=== PATIENT | female | born 1960 | race Caucasian/White ===

== ENCOUNTER 2022-06-01 09:58 | Outpatient (REF) | payer OTHER, SELFPAY ==
--- NOTE | ~2022-06-01 | XR_ITS ---
EXAMINATION: XR ABDOMEN KUB CLINICAL INDICATION: Hematuria COMPARISON: None TECHNIQUE: AP view of the abdomen. FINDINGS: There is scattered stool and gas seen in the colon without distention. The small bowel loops are normal caliber. There is no organomegaly. No gross bony abnormality. XR/XR KUB IMPRESSION: Unremarkable abdomen exam.
== END 2022-06-01 09:59 | disposition home or self-care (01) ==
LOC: HO.HMGCX 09:58
PROVIDERS: PCP Family Medicine; Visit Provider Nurse Practitioner Family
DX: R31.9 Hematuria, unspecified (principal)
CPT/HCPCS: 74018; 87086

== ENCOUNTER 2022-06-03 13:07 | Outpatient (REF) | payer OTHER, SELFPAY ==
[2022-06-03 16:23] LABS: MANUAL DIFF FLAG NO
[2022-06-03 16:25] LABS: Basophils Absolute Auto 0.1 X10*3/uL (0.0-0.2); Basophils Percent Auto 0.7 % (0-2); Eosinophils Absolute Auto 0.1 X10*3/uL (0.0-0.4); Eosinophils Percent Auto 1.6 % (0-4); Hematocrit 45.6 % (37.0-47.0); Hemoglobin 15.5 g/dl (12.0-16.0); Imm Gran Abs Auto 0.02 X10*3/uL (0.00-0.03); Imm Gran Pct Auto 0.3 % (0.0-0.4); Lymphocytes Absolute Auto 2.3 X10*3/uL (1.2-4.9); Lymphocytes Percent Auto 32.5 % (20-40); Mean Corpuscular Hemoglobin 31.2 pg (27.0-33.0); Mean Corpuscular Volume 91.8 fL (80.0-98.0); Mean Platelet Volume 11.3 fL (9.4-12.3); Monocytes Absolute Auto 0.4 X10*3/uL (0.1-1.2); Monocytes Percent Auto 6.3 % (2-11); Neutrophils Absolute Auto 4.1 x10*3/uL (2.0-8.3); Neutrophils Percent Auto 58.6 % (45-73); Platelet Count 276 X10*3/uL (160-400); Red Blood Count 4.97 X10*6/uL (4.20-5.50); Red Cell Distribution Width 11.9 % (11.0-16.0)
[2022-06-03 16:42] LABS: Alanine Aminotransferase 17 U/L (0-31); Albumin Level 4.4 g/dL (3.5-5.0); Alkaline Phosphatase 93 U/L (39-117); Anion Gap 17 (12-20); Aspartate Amino Transferase 18 U/L (5-31); Bilirubin Total 0.9 mg/dL (0.0-1.0); Blood Urea Nitrogen 16 mg/dL (9-16); Calcium 9.3 mg/dL (8.4-10.2); Carbon Dioxide 26 mmol/L (22-29); Chloride 103 mmol/L (96-108); Cholesterol 274 mg/dL; Estimated Glomerular Filt Rate > 60; Glucose Fasting 91 mg/dL (60-99); HDL Cholesterol 49 mg/dL; LDL Cholesterol Calculated 197 mg/dl; Potassium 4.3 mmol/L (3.3-5.1); Sodium 142 mmol/L (135-145); Total Protein 7.5 g/dL (6.5-8.0); Triglycerides 142 mg/dL
[2022-06-03 17:04] LABS: TSH reflex Free T4 2.76 uIU/mL (0.32-4.0)
== END 2022-06-03 13:08 | disposition home or self-care (01) ==
LOC: HO.HMGCLDS 13:07
PROVIDERS: PCP Family Medicine; Visit Provider Nurse Practitioner Family
DX: R31.9 Hematuria, unspecified (principal)
CPT/HCPCS: 36415; 80053; 80061; 84443; 85025

== ENCOUNTER 2024-03-29 15:09 | Emergency (ER) | payer OTHER, SELFPAY ==
--- NOTE | ~2024-03-29 | US_ITS ---
EXAMINATION: US VENOUS ULTRASOUND WITH DOPPLER LOWER EXTREMITY, LEFT CLINICAL INFORMATION: Left lower extremity swelling can edema COMPARISON: None available. TECHNIQUE: Ultrasound of the deep veins is performed from the hip to the calf with compression sonography and color and pulse Doppler assessment. Spectral analysis with color-flow imaging is performed. FINDINGS: There is normal venous compression and respiratory variation and augmented flow. The visualized common femoral vein, superficial femoral vein, profunda femoral vein, popliteal vein, and the trifurcation region shows no evidence of deep venous thrombosis. There is no significant popliteal fossa cyst. There is superficial thrombophlebitis at the lateral/posterior aspect of left thigh corresponding to the area of pain and redness If the patient's symptoms persist, followup ultrasound in 5 days 7 days might be of value to exclude proximal propagation from a non-visualized calf vein. US/US venous duplex LE IMPRESSION: No DVT demonstrated in the left lower extremity. Superficial thrombophlebitis
[2024-03-29 15:27] VITALS: BP 190/85; PULSE 79; RESP 18; TEMP 37.1; O2SAT 97; BMI 41.2
--- NOTE | 2024-03-29 15:29 | ED_ITS ---
HPI - General Adult General Chief complaint: Extremity Problem Stated complaint: ?L leg DVT/ sent by UC Time Seen by Provider: 03/29/24 18:15 Source: patient Mode of arrival: ambulatory Limitations: no limitations History of Present Illness HPI narrative: Patient is a 63-year-old female who presents emergency department for evaluation of concerns left lower extremity. Awoke last week with a pruritic area to the left posterior thigh, progressed over the following days, applied ice and heat with some improvement. Last night she noticed an additional area of firmness on palpation. She presented to an urgent care for evaluation was advised to come to the emergency department to rule out DVT. Related Data Previous Rx's ?Medication ?Instructions ?Recorded aspirin 81 mg capsule 81 mg PO DAILY #30 caps 03/29/24 Allergies Allergy/AdvReac Type Severity Reaction Status Date / Time codeine [CODEINE] Allergy Unknown UNKNOWN Verified 03/29/24 15:33 levofloxacin [From LEVAQUIN] Allergy Unknown UNKNOWN Verified 03/29/24 15:33 metronidazole [From FLAGYL] Allergy Unknown UNKNOWN Verified 03/29/24 15:33 procaine [From NOVOCAIN] Allergy Unknown UNKNOWN Verified 03/29/24 15:33 sulfamethoxazole Allergy Hives Verified 03/29/24 15:33 [From Bactrim] trimethoprim [From Bactrim] Allergy Hives Verified 03/29/24 15:33 Codeine Sulfate Allergy Unknown unknown Uncoded 06/01/22 08:46 Review of Systems Review of Systems: Yes all other systems are reviewed and are negative PMFSH Past Medical History Attestation statement: The following information was validated with the patient. Source: old records reviewed Social History Social History Advance Directives: No Advance Directives Information Provided: No Do you have a plan to hurt others: No Plan Physical Exam ED Vital Signs: Vital Signs - 24 hr 03/29/24 15:27 Temperature 98.7 F Pulse Rate 79 Respiratory Rate 18 Blood Pressure 190/85 H Pulse Oximetry 97 Oxygen Delivery Method Room Air BMI result Body Mass Index 41.2 Appearance: Alert.?Oriented to person, place and time. No acute distress.?Normal affect.? Neck: Normal inspection.? Neck supple.?? CVS: Heart sounds normal. Normal heart rate and rhythm.? Pulses normal.?? Respiratory: No respiratory distress.? Lung sounds clear to auscultation bilaterally?? Abdomen: Soft and non-tender. Normoactive bowel sounds.? Skin: Skin warm and dry.? Normal skin color.? Left posterior lateral distal thigh with 17 cm X 10cm area of erythema warmth and to palpable firm nodular areas Extremities: No lower extremity edema.? No calf ttp? Neuro: Moves all extremities spontaneously. Sensation intact bilaterally. Ambulates with normal steady gait. Medical Decision Making Medical Decision Making MDM Narrative: Patient is a 63-year-old female who presents emergency department for evaluation of redness swelling and a palpable lump to the posterior thigh as per HPI. Initial physical most concerning for superficial phlebitis versus DVT. She has in no respiratory distress, she is without tachycardia tachypnea or hypoxia. She is afebrile. Venous duplex Ultrasound was obtained which reveals a superficial thrombophlebitis of the left posterior lateral distal thigh. We had an extensive conversation about treatment options including 45 day course of Eliquis, she expresses reservations about beginning Eliquis as she has been experiencing abnormal uterine bleeding. Reports she has been having bleeding ranging from mild spotting to bleeding with passing of clots, at times having to change a sanitary napkin 2-3 times daily. She has been followed by her carpenter ship through [facility], she does admit that she has not followed up recently but she was supposed to undergo a biopsy. She has concerned that the Eliquis may worsen this bleeding. Discussed alternatively low-dose aspirin and close observation of this area with repeat ultrasound within 1 week. She has elected for aspirin and outpatient follow-up with her primary care provider for repeat ultrasound. We discussed strict return precautions, and she verbalizes understanding of this. This case was discussed with ED attending Dr. Sevilla who was in agreement. The extremities neurovascularly intact distally. At this time stable for discharge Differential Diagnosis Differential Diagnoses: The differential diagnosis associated with the presentation includes (See narrative above) Independent Interpretation I performed an independent interpretation of an: Ultrasound (Superficial phlebitis) Radiology Impression Discussion of test interpretation with radiology: I have reviewed the radiologist's reading. Radiologist Impression: US/US venous duplex LE LT IMPRESSION: No DVT demonstrated in the left lower extremity. Superficial thrombophlebitis External Record Review External record reviewed: Outpatient record Prescription Management I considered prescription management with: Other (See narrative above) Discharge Plan Discharge Clinical Impression: Superficial thrombophlebitis Qualifiers: Superficial thrombophlebitis-Involved body area: lower extremity Laterality: left Qualified Code(s): I80.02 - Phlebitis and thrombophlebitis of superficial vessels of left lower extremity Patient Disposition: Home, Self-Care Instructions: Superficial Thrombophlebitis (ED) Additional Instructions: As discussed, it is very important that you monitor the area closely, if you begin to notice continued extension of redness, swelling, progressive pain should be re-evaluated right away. If you develop chest pain, shortness of breath difficulty breathing, numbness or tingling to the extremities and it should be re-evaluated right away. We talked about treatment options including Eliquis versus low-dose aspirin, due to your concern for uterine bleeding you have elected for low-dose aspirin. It is imperative that you follow-up with gynecology regarding her abnormal vagi nal bleeding. Additionally, it is imperative that you contact your primary care doctor office 1st thing Sunday to arrange for a follow-up ultrasound within 1 week. Prescriptions: New aspirin 81 mg capsule 81 mg PO DAILY Qty: 30 0RF Referrals: Jared Lu MD [Primary Care Provider] - Print Language: Montserratian
[2024-03-29 18:45] VITALS: BP 196/97; PULSE 69; RESP 18; TEMP 36.8; O2SAT 97
== END 2024-03-29 18:46 | disposition home or self-care (01) ==
PROVIDERS: Emergency Provider Internal Medicine; PCP Family Medicine
DX: I80.02 Phlebitis and thrombophlebitis of superficial vessels of left lower extremity (principal); R60.0 Localized edema
CPT/HCPCS: 93971; 99282; 99284

== ENCOUNTER 2024-04-02 09:15 | Outpatient (AMB) | payer OTHER, SELFPAY ==
--- NOTE | 2024-04-02 09:20 | A.OFFPC_ITS ---
Vital Signs 04/02/24 09:26 Height 5 ft 1 in Weight 216 lb 4 oz BMI 40.9 BP 155/69 H Blood Pressure Location Rt brachial Position Sitting Respiration 16 Pulse 84 Pulse Source Pulse Oximeter Temp 97.5 F Temp Source Temporal Artery Scan Pulse Oximetry (%) 96 Oxygen Delivery Method Room Air Intake Visit Reasons: Establish care Intake Note: patient here for new patient visit. Clinical Specialist Medical Device Required: No Is last menstrual period known: No (but shes having some bleeding ) Post menopausal: No Patient : No Allergies codeine [CODEINE] Allergy (Unknown, Verified 04/02/24 10:00) UNKNOWN levofloxacin [From LEVAQUIN] Allergy (Unknown, Verified 04/02/24 10:00) UNKNOWN metronidazole [From FLAGYL] Allergy (Unknown, Verified 04/02/24 10:00) UNKNOWN procaine [From NOVOCAIN] Allergy (Unknown, Verified 04/02/24 10:00) UNKNOWN sulfamethoxazole [From Bactrim] Allergy (Verified 04/02/24 10:00) Hives trimethoprim [From Bactrim] Allergy (Verified 04/02/24 10:00) Hives Codeine Sulfate Allergy (Unknown, Uncoded 06/01/22 08:46) unknown Medication List - Last Reconciled 04/02/24 by FATOU Bergeron- aspirin 81 mg PO DAILY Tobacco use date assessed: 04/02/24 Dental Screening Dental Screen Date: 04/02/24 Did you have a dental visit in the last 12 months?: Yes Did you have a dental problem in the last 6 months where you did not have access to dental care?: No Was dental information given to patient?: Patient has dentist HPI HPI Comments History of Present Illness Details Here today for hospital discharge follow up. ED visit report from 03/29/24 at [facility] reviewed and states: Patient is a 63-year-old female who presents emergency department for evaluation of redness swelling and a palpable lump to the posterior thigh as per HPI. Initial physical most concerning for superficial phlebitis versus DVT. She has in no respiratory distress, she is without tachycardia tachypnea or hypoxia. She is afebrile. Venous duplex Ultrasound was obtained which reveals a superficial thrombophlebitis of the left posterior lateral distal thigh. We had an extensive conversation about treatment options including 45 day course of Eliquis, she expresses reservations about beginning Eliquis as she has been experiencing abnormal uterine bleeding. Reports she has been having bleeding ranging from mild spotting to bleeding with passing of clots, at times having to change a sanitary napkin 2-3 times daily. She has been followed by her lye boiler through [facility], she does admit that she has not followed up recently but she was supposed to undergo a biopsy. She has concerned that the Eliquis may worsen this bleeding. Discussed alternatively low-dose aspirin and close observation of this area with repeat ultrasound within 1 week. She has elected for aspirin and outpatient follow-up with her primary care provider for repeat ultrasound. 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 She feels well. Reports the area has improved. Has been applying warm moist compresses several times per day and taking her aspirin daily. She does admit to acid reflux with the aspirin. Endorses several sensitivities to most medications. Discussed using enteric- coated but she reports that this makes her feel worse. She is taking the aspirin with food. When asked about any neuro or cardiac symptoms she does state that she was walking the other day in the heat uphill and had a short- lived pulling sensation substernally that lasted only 1-2 seconds and was self- limiting. Not associated with any other symptoms. Otherwise she denies any chest pain, shortness of breath, headache, visual disturbances, syncope or presyncope, swelling in the left lower extremity, loss of sensation in the left lower extremity. Discuss the need for follow up which includes an ultrasound in about 1 week. She is willing and open to do this. The order was placed today. Discussed a consult with vascular as she has peripheral vascular disease affecting bilateral lower extremities with several varicosities. She really does not want to see vascular. Discuss with her the clinical reasoning behind this referral. She is open to the referral being placed today but admits that she will cancel it if she does not feel like she needs it or does not want to go. Exam Awake alert oriented, no acute distress Neurovascularly intact Regular rate and rhythm, 2/6 systolic murmur [patient reports this is longstanding in his had an echocardiogram previously] Left lower extremity with several varicosities and spider veins, lymphedema, unable to palpate pedal pulses given body habitus, posterior left thigh is resolving ecchymosis with palpable superficial clot extending from the back of the thigh to the bend in the knee. Plan Aspirin 81 mg p.o. daily for 90 days Refer to vascular Repeat ultrasound 04/07/2024 Educated on reasons to seek additional care FU with [employer] [facility] Return to office 04/10/2026 to follow up, sooner as needed. This note is constructed using voice recognition software. While every effort has been made to ensure accuracy in supervisor road administrator, still errors may have been included Sometimes, these errors may affect the content or meaning of the given sentence . Total time spent caring for the patient today was 45 minutes. This includes time spent before the visit reviewing the chart, time spent during the visit, and time spent after the visit on documentation [facility] Social History Housing: Apartment Patient Tobacco Use Status: Former Tobacco user (stopped smoking years ago) e-Cigarette/Vaping Use: Never Used Second Hand Smoke Exposure: No service: No Current occupational status: employed Current occupation: nurse Current occupational exposures/hazards: Yes Cognitive needs: No Hearing needs: No Vision needs: Yes Questionnaire PHQ-9 Over the last 2 weeks, how often have you been bothered by any of the following problems? 1. Little interest or pleasure in doing things: not at all 2. Feeling down, depressed, or hopeless: not at all 3. Trouble falling or staying asleep, or sleeping too much: not at all 4. Feeling tired or having little energy: not at all 5. Poor appetite or overeating: not at all 6. Feeling bad about yourself - or that you are a failure or have let yourself or your family down: not at all 7. Trouble concentrating on things, such as reading the newspaper or watching television: not at all 8. Moving or speaking so slowly that other people could have noticed. Or the opposite - being so fidgety or restless that you have been moving around a lot more than usual: not at all 9. Thoughts that you would be better off or of hurting yourself in some way: not at all Total score: 0 Depression Screening Interpretation: Negative Depression Screening Done: Yes 68395 - PHQ-9 Billing: Yes Source: Developed by Drs. Delvis Singh, Debra Rivas, Jey Pan and colleagues, with an educational rachele from [employer] Thrive Questionnaire Date Thrive assessed: 04/02/24 I am a: Patient What is your living situation today?: I have a steady place to live Within the past 12 months, did the food you bought not last and you didn't have the money to get more?: Never true Within the past 12 months, did you worry whether your food would run out before you got money to buy more?: Never true Do you have trouble paying for medicines?: No Do you have trouble getting transportation to medical appointments?: No Do you have trouble paying your heating and electricity bill?: No Do you have trouble taking care of your child, family member or friend?: No Do you have trouble with day-to-day activities such as bathing, preparing meals, shopping, managing finances, etc.?: No Are you currently unemployed and looking for a job?: No Are you interested in more education?: No Please select the resources that you would like help with: None Currently or been in a relationship where the following occur: No concerns reported THRIVE Score: 0 AUDIT C Alcohol Use Questionnaire (AUDIT-C) 1. How often do you have a drink containing alcohol?: Never Total Score: 0 Score Reviewed/Action Taken: Yes ASH-7 AMB Questionnaire ASH-7 Date ASH - 7 assessed: 04/02/24 Feeling nervous, anxious, or on edge: 0 = Not at all Not being able to stop or control worryin = Not at all Worrying too much about different things: 0 = Not at all Trouble relaxin = Not at all Being so restless that it is hard to sit still: 0 = Not at all Becoming easily annoyed or irritable: 0 = Not at all Feeling afraid as if something awful might happen: 0 = Not at all Total ASH-7 score (0-4 normal; 5-9 mild; 10-14 moderate; 15-21 severe): 0 Source: Developed by Drs. Delvis Singh, Debra Rivas, Jey Pan and colleagues, with an educational rachele from [employer] ASH-7 Assessment Billing ASH-7 Assessment Tool: ASH-7 Assessment 89074 Physical exam (Primary Care) Vital Signs: Last Vital Signs Temp 97.5 F 04/02/24 09:26 Pulse 84 04/02/24 09:26 Resp 16 04/02/24 09:26 BP 155/69 H 04/02/24 09:26 Pulse Ox 96 04/02/24 09:26 Oxygen Delivery Method Room Air 04/02/24 09:26 BMI result Body Mass Index 40.9 BMI Assessment/Plan discussion: High BMI High, discussed plan: lifestyle Tobacco/Smoking Status: Tobacco use Status Tobacco use date assessed 04/02/24 04/02/24 09:26 Patient Tobacco Use Status Former Tobacco user (stopped 04/02/24 09:26 smoking years ago) e-Cigarette/Vaping Use Never Used 04/02/24 09:26 PHQ-9: PHQ-9 Score PHQ-9: Total score 0 04/02/24 09:34 Depression Screening Interpretation: Negative Thrive Assessment: Date of Thrive Assessment Date Thrive assessed 04/02/24 04/02/24 09:34 Currently or been in a relationship where the following occur: No concerns reported Assessment and Plan Assessment & Plan (1) Superficial thrombophlebitis: Code(s): I80.9 - Phlebitis and thrombophlebitis of unspecified site Qualifiers: Laterality: left Superficial thrombophlebitis-Involved body area: lower extremity Qualified Code(s): I80.02 - Phlebitis and thrombophlebitis of superficial vessels of left lower extremity (2) PVD (peripheral vascular disease): Code(s): I73.9 - Peripheral vascular disease, unspecified (3) Heart murmur: Code(s): R01.1 - Cardiac murmur, unspecified (4) BMI 40.0-44.9, adult: Code(s): Z68.41 - Body mass index [BMI] 40.0-44.9, adult (5) Hospital discharge follow-up: Code(s): Z09 - Encounter for follow-up examination after completed treatment for conditions other than malignant neoplasm Orders: Orders US venous duplex LE LT Today I80.02 - Phlebitis and thrombophlebitis of superficial vessels of left lower extremity Referrals Vascular Surgery Referral I80.02 - Phlebitis and thrombophlebitis of superficial vessels of left lower extremity Coding Level of Care Code New Pt Level 4 (57261) Diagnoses Superficial thrombophlebitis I80.02 Laterality: left Superficial thrombophlebitis-Involved body area: lower extremity PVD (peripheral vascular disease) I73.9 Heart murmur R01.1 BMI 40.0-44.9, adult Z68.41 Hospital discharge follow-up Z09 Additional Codes ASH-7 Assessment Billing - ASH-7 Assessment Tool: ASH-7 Assessment [id number] ( [id number])
[2024-04-02 09:26] VITALS: BP 155/69; PULSE 84; RESP 16; TEMP 36.4; O2SAT 96; BMI 40.9
== END 2024-04-02 09:54 | disposition home or self-care (01) ==
PROVIDERS: PCP Family Medicine; Visit Provider Nurse Practitioner Family
DX: I80.02 Phlebitis and thrombophlebitis of superficial vessels of left lower extremity (principal); I73.9 Peripheral vascular disease, unspecified; Z68.41 Body mass index [BMI] 40.0-44.9, adult; E66.01 Morbid (severe) obesity due to excess calories; R01.1 Cardiac murmur, unspecified; Z09 Encounter for follow-up examination after completed treatment for conditions other than malignant neoplasm
CPT/HCPCS: 99214

== ENCOUNTER 2024-04-07 12:51 | Outpatient (REF) | payer OTHER, SELFPAY ==
--- NOTE | ~2024-04-07 | US_ITS ---
EXAMINATION: US VENOUS ULTRASOUND WITH DOPPLER LOWER EXTREMITY, LEFT CLINICAL INFORMATION: Phlebitis one week follow-up COMPARISON: Left lower extremity ultrasound 03/29/2024 TECHNIQUE: Ultrasound of the deep veins is performed from the hip to the calf with compression sonography and color and pulse Doppler assessment. Spectral analysis with color-flow imaging is performed. FINDINGS: There is normal venous compression and respiratory variation and augmented flow. The visualized common femoral vein, superficial femoral vein, profunda femoral vein, popliteal vein, and the trifurcation region shows no evidence of deep venous thrombosis. There is no significant popliteal fossa cyst. Again seen is superficial thrombophlebitis in the posterior thigh similar in appearance to 03/29/2024. US/US venous duplex LE LT IMPRESSION: No DVT demonstrated in the left lower extremity. No change in the appearance of the superficial thrombophlebitis.
== END 2024-04-07 12:52 | disposition home or self-care (01) ==
LOC: HO.HMGCX 12:51
PROVIDERS: PCP Nurse Practitioner Family; Visit Provider Nurse Practitioner Family
DX: I80.02 Phlebitis and thrombophlebitis of superficial vessels of left lower extremity (principal)
CPT/HCPCS: 93971

== ENCOUNTER 2024-04-11 11:50 | Outpatient (AMB) | payer OTHER, SELFPAY ==
--- NOTE | 2024-04-11 11:57 | A.OFFPC_ITS ---
Vital Signs 04/11/24 12:02 Height 5 ft 1 in Weight 219 lb BMI 41.4 BP 136/66 Blood Pressure Location Lt brachial Position Sitting Respiration 18 Pulse 76 Pulse Source Pulse Oximeter Temp 98.2 F Temp Source Oral Pulse Oximetry (%) 97 Oxygen Delivery Method Room Air Intake Visit Reasons: 30 min fu repeat US LLE for S.T. Intake Note: Follow up, ultrasound done 04/07/24 Is last menstrual period known: No Allergies codeine [CODEINE] Allergy (Unknown, Verified 04/11/24 12:04) UNKNOWN levofloxacin [From LEVAQUIN] Allergy (Unknown, Verified 04/11/24 12:04) UNKNOWN metronidazole [From FLAGYL] Allergy (Unknown, Verified 04/11/24 12:04) UNKNOWN procaine [From NOVOCAIN] Allergy (Unknown, Verified 04/11/24 12:04) UNKNOWN sulfamethoxazole [From Bactrim] Allergy (Verified 04/11/24 12:04) Hives trimethoprim [From Bactrim] Allergy (Verified 04/11/24 12:04) Hives Codeine Sulfate Allergy (Unknown, Uncoded 04/11/24 12:04) unknown Medication List - Last Reconciled 04/11/24 by MITCH BergeronP- aspirin 325 mg PO DAILY Tobacco use date assessed: 04/02/24 Dental Screening Dental Screen Date: 04/11/24 Did you have a dental visit in the last 12 months?: Yes Did you have a dental problem in the last 6 months where you did not have access to dental care?: No Was dental information given to patient?: Patient has dentist HPI HPI Comments History of Present Illness 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 Reports the area has improved. Has been applying warm moist compresses several times per day and taking her aspirin daily. She does admit to acid reflux with the aspirin. Endorses several sensitivities to most medications. Discussed using enteric-coated but she reports that this makes her feel worse. She is taking the aspirin with food. When asked about any neuro or cardiac symptoms she does state that she was walking the other day in the heat uphill and had a short-lived pulling sensation substernally that lasted only 1-2 seconds and was self-limiting. Not associated with any other symptoms. Otherwise she denies any chest pain, shortness of breath, headache, visual disturbances, syncope or presyncope, swelling in the left lower extremity, loss of sensation in the left lower extremity.Discuss the need for follow up which includes an ultrasound in about 1 week. She is willing and open to do this. The order was placed today. Discussed a consult with vascular as she has peripheral vascular disease affecting bilateral lower extremities with several varicosities. She really does not want to see vascular. Discuss with her the clinical reasoning behind this referral. She is open to the referral being placed today but admits that she will cancel it if she does not feel like she needs it or does not want to go. Since this time, she went for the repeat ultrasound of the left lower extremity which showed no change to the superficial thrombophlebitis of the left lower extremity. Feels the area looks better. Cont w/ warm comps to the area. Cont to take ASA, admits to taking 325mg for the last week or so. Continues to remain hesitant about Eliquis use given dysfunctional uterine bleeding. Has appt in June with Vascular. Today she reports that she is having what feels like acid reflux symptoms that occurred sometimes during the night, sporadically at other times of the day. Recently she had grape juice and went to bed. Woke in the middle of the night with substernal pain that was going up into the back of her throat and radiating into her back. She got out of bed and walked around. And this self resolved. Similar symptoms have occurred. All of these things have happened only after the diagnosis of the superficial thrombophlebitis of the left lower extremity. The superficial thrombophlebitis did occur after having prolonged pressure on the back of her leg from a chair while she was working on the computer. She denies a personal or family history of hypercoagulable disorders. Denies any neuro complaints. Exam Awake alert oriented, no acute distress Neurovascularly intact Regular rate and rhythm, 2/6 systolic murmur [patient reports this is longstanding in his had an echocardiogram previously] Left lower extremity with several varicosities and spider veins, lymphedema, unable to palpate pedal pulses given body habitus, posterior left thigh is resolving ecchymosis with palpable superficial clot extending from the back of the thigh to the bend in the knee which appears much softer and less cord-like in the previous visit. Lab results from today show microcytic anemia, normal electrolytes, normal renal function, normal LFTs, D-dimer 571, PTT 11.5, PT INR 0.9 pending at this time is the terrence moy a brand comprehensive profile and a lupus anticoagulant panel Plan Increase aspirin from 81 mg to 325 mg p.o. daily for a total of 90 days. CTA and additional labs ordered today given the complaints. This certainly could be acid reflux however given the superficial thrombophlebitis in the description of her pain I think it would be prudent. Offered to refer her elsewhere for a vascular appointment sooner than June, declined at this time. I would like to see her back after the testing is done with the understanding that she will be called with any critical values. Reminded that should she develop any acute chest pain, syncope, stroke-like symptoms, etc. that she should seek care in the emergency room. At 16:30 her primary phone number was called. It immediately went to [employer] which was not set up. I called the secondary number which was listed as her home number. It went to [employer]. I did leave a detailed message on her machine regarding the elevated D-dimer. The option was given for her to seek care in the emergency room or continue with an outpatient workup as the elevated D-dimer could certainly be resultant of the known thrombophlebitis. A D-dimer unfortunately was not done in in the emergency room and therefore I do not have a baseline. This note is constructed using voice recognition software. While every effort has been made to ensure accuracy in perennial house manager, still errors may have been included Sometimes, these errors may affect the content or meaning of the given sentence . Total time spent caring for the patient today was 45 minutes. This includes time spent before the visit reviewing the chart, time spent during the visit, and time spent after the visit on documentation [facility] Social History (Updated 04/11/24 @ 12:05 by Brigida Iraheta CMA) Housing: Apartment Patient Tobacco Use Status: Former Tobacco user (stopped smoking years ago) e-Cigarette/Vaping Use: Never Used Second Hand Smoke Exposure: No service: No Current occupational status: employed Current occupation: nurse Current occupational exposures/hazards: Yes Cognitive needs: No Hearing needs: No Vision needs: Yes Questionnaire Thrive Questionnaire Date Thrive assessed: 04/02/24 ASH-7 AMB Questionnaire ASH-7 Date ASH - 7 assessed: 04/02/24 Source: Developed by DrsVladimir Singh, Debra Rivas, Jey Pan and colleagues, with an educational rachele from [employer]. Physical exam (Primary Care) Vital Signs: Last Vital Signs Temp 98.2 F 04/11/24 12:02 Pulse 76 04/11/24 12:02 Resp 18 04/11/24 12:02 BP 136/66 04/11/24 12:02 Pulse Ox 97 04/11/24 12:02 Oxygen Delivery Method Room Air 04/11/24 12:02 BMI result Body Mass Index 41.4 Tobacco/Smoking Status: Tobacco use Status Tobacco use date assessed 04/02/24 04/11/24 11:57 Patient Tobacco Use Status Former Tobacco user (stopped 04/11/24 12:05 smoking years ago) e-Cigarette/Vaping Use Never Used 04/11/24 12:05 Thrive Assessment: Date of Thrive Assessment Date Thrive assessed 04/02/24 04/11/24 11:57 Results Reviewed Results Reviewed: 04/07/24 US/US venous duplex LE LT IMPRESSION: No DVT demonstrated in the left lower extremity. No change in the appearance of the superficial thrombophlebitis. Assessment and Plan Assessment & Plan (1) Superficial thrombophlebitis: Code(s): I80.9 - Phlebitis and thrombophlebitis of unspecified site Qualifiers: Laterality: left Superficial thrombophlebitis-Involved body area: lower extremity Qualified Code(s): I80.02 - Phlebitis and thrombophlebitis of superficial vessels of left lower extremity (2) Elevated d-dimer: Code(s): R79.89 - Other specified abnormal findings of blood chemistry Orders: Orders D Dimer High Sensitivity Today I80.9 - Phlebitis and thrombophlebitis of unspecified site IRON PROFILE Today I80.9 - Phlebitis and thrombophlebitis of unspecified site Lupus Anticoagulant Panel Today I80.9 - Phlebitis and thrombophlebitis of unspecified site von Willebrand Comp. Profile Today I80.9 - Phlebitis and thrombophlebitis of unspecified site Prothrombin Time INR Today I80.9 - Phlebitis and thrombophlebitis of unspecified site CT angio chest aorta Today I80.9 - Phlebitis and thrombophlebitis of unspecified site Complete Blood Count no Diff Today I80.9 - Phlebitis and thrombophlebitis of unspecified site Ferritin Today I80.9 - Phlebitis and thrombophlebitis of unspecified site Comprehensive Met. Panel Today I80.9 - Phlebitis and thrombophlebitis of uns pecified site Medications: New aspirin 325 mg PO DAILY 90 tabs 0RF Discontinued aspirin Discontinued Reason: Doctor's Order 81 mg PO DAILY 30 caps 0RF Coding Level of Care Code Est Pt Level 5 (61536) Complex EM visit Add On G2211 Diagnoses Superficial thrombophlebitis I80.02 Laterality: left Superficial thrombophlebitis-Involved body area: lower extremity Elevated d-dimer R79.89
[2024-04-11 12:02] VITALS: BP 136/66; PULSE 76; RESP 18; TEMP 36.8; O2SAT 97; BMI 41.4
== END 2024-04-11 13:17 | disposition home or self-care (01) ==
PROVIDERS: PCP Nurse Practitioner Family; Visit Provider Nurse Practitioner Family
DX: I80.02 Phlebitis and thrombophlebitis of superficial vessels of left lower extremity (principal); R79.89 Other specified abnormal findings of blood chemistry
CPT/HCPCS: 99215

== ENCOUNTER 2024-04-11 13:07 | Outpatient (REF) | payer OTHER, SELFPAY ==
[2024-04-11 14:12] LABS: Hematocrit 34.2 % (37.0-47.0); Hemoglobin 10.5 g/dl (12.0-16.0); Mean Corpuscular HGB Conc 30.7 g/dl (31.0-35.0); Mean Corpuscular Hemoglobin 24.2 pg (27.0-33.0); Mean Platelet Volume 10.4 fL (9.4-12.3); Platelet Count 389 X10*3/uL (160-400); Red Blood Count 4.33 X10*6/uL (4.20-5.50); Red Cell Distribution Width 13.8 % (11.0-16.0); White Blood Count 9.8 X10*3/uL (4.8-10.8)
[2024-04-11 14:21] LABS: INTERNATIONAL NORM RATIO 0.9 (0.9-1.1); Prothrombin Time 11.5 SEC (11.1-13.3)
[2024-04-11 14:38] LABS: D Dimer High Sensitivity 571 NG/ML
[2024-04-11 14:41] LABS: Alanine Aminotransferase 12 U/L (0-31); Albumin Level 4.4 g/dL (3.5-5.0); Alkaline Phosphatase 93 U/L (39-117); Anion Gap 12 (12-20); Aspartate Amino Transferase 14 U/L (5-31); Bilirubin Total 0.4 mg/dL (0.0-1.0); Blood Urea Nitrogen 16 mg/dL (9-16); Calcium 9.5 mg/dL (8.4-10.2); Carbon Dioxide 28 mmol/L (22-29); Chloride 106 mmol/L (96-108); Estimated Glomerular Filt Rate > 60; Glucose Random 93 mg/dL (60-115); Iron 20 mcg/dL (30-160); Percent Iron Saturation 5 % (15-50); Potassium 3.9 mmol/L (3.3-5.1); Sodium 142 mmol/L (135-145); Total Iron Binding Capacity 395 mcg/dL (228-428); Total Protein 7.7 g/dL (6.5-8.0); Unsaturated Iron Binding 375 ug/dL
[2024-04-11 14:54] LABS: Ferritin 8 ng/mL (10-250)
== END 2024-04-11 13:08 | disposition home or self-care (01) ==
LOC: HO.WFDLDS 13:07
PROVIDERS: Visit Provider Nurse Practitioner Family
DX: I80.9 Phlebitis and thrombophlebitis of unspecified site (principal)
CPT/HCPCS: 36415; 80053; 82728; 83540; 85027; 85240; 85245; 85246; 85247; 85379; 85597; 85598; 85610; 85613; 85730

== ENCOUNTER 2024-05-27 12:17 | Outpatient (AMB) | payer OTHER, SELFPAY ==
--- NOTE | 2024-05-27 12:25 | A.OFFPC_ITS ---
Vital Signs 05/27/24 12:27 Height 5 ft 1 in Weight 220 lb 6 oz BMI 41.6 BP 142/70 H Blood Pressure Location Lt brachial Position Sitting Respiration 15 Pulse 88 Pulse Source Pulse Oximeter Pulse Oximetry (%) 99 Oxygen Delivery Method Room Air Intake Visit Reasons: 30 min early May Clotting Intake Note: routine follow up Allergies codeine [CODEINE] Allergy (Unknown, Verified 05/27/24 12:49) UNKNOWN levofloxacin [From LEVAQUIN] Allergy (Unknown, Verified 05/27/24 12:49) UNKNOWN metronidazole [From FLAGYL] Allergy (Unknown, Verified 05/27/24 12:49) UNKNOWN procaine [From NOVOCAIN] Allergy (Unknown, Verified 05/27/24 12:49) UNKNOWN sulfamethoxazole [From Bactrim] Allergy (Verified 05/27/24 12:49) Hives trimethoprim [From Bactrim] Allergy (Verified 05/27/24 12:49) Hives Codeine Sulfate Allergy (Unknown, Uncoded 04/11/24 12:04) unknown Medication List - Last Reconciled 05/27/24 by Angela Hamilton [facility] aspirin 325 mg PO DAILY Tobacco use date assessed: 04/02/24 Dental Screening Dental Screen Date: 04/11/24 HPI HPI Comments History of Present Illness Details 64-year-old female with superficial thro mbophlebitis here today for follow up. Since last office visit, her D-dimer was noted to be elevated. Therefore a CTA was ordered. Unfortunately this exam was not done. Upon speaking with the patient today she reports that she stopped drinking orange juice and her symptoms improved. She was waiting to schedule the CTA but since her symptoms resolved she did not think that it was worth it. She states that she is now drinking grape juice as she has read that this helps with vasculature. She is n o longer drinking any orange juice. Denies any recurrence of symptoms. She also attributes the chest symptoms with exercising in the heat. Now that the weather is cooler, she was able to exercise without any recurrence of symptoms. In regards to the phlebitis of the back of the left leg she continues to apply warm compress to the area. She is taking 81 mg of aspirin daily as a full tablet caused GI side effects. She is taking every other day as she feels like when she takes daily it causes reflux. I reviewed with her the hemolyzed labs from last office visit in the need to repeat them. At this time she declines as she feels fine. In other notes, she will be serving on jury duty in June and would like a medical excuse note. I told her that I would be happy to write this when she provides me her bad information. She states that she will drop this off of the office some time. She would like this letter mailed home to her. Exam Awake alert oriented, no acute distress Neurovascularly intact Regular rate and rhythm, 2/6 systolic murmur [patient reports this is longstanding & had an echocardiogram previously] Left lower extremity with several varicosities and spider veins, lymphedema, unable to palpate pedal pulses given body habitus, posterior left thigh no ecchymosis, palpable superficial clot extending from the back of the thigh to the bend in the knee which appears much softer and less cord-like in the previous visit. Plan Patient does not like to come to the doctor and does not prefer an appointment to be scheduled until next year. At this time, I advised her to continue the aspirin 81 mg daily. Or every other day if that is what she can tolerate. If she has any recurrence of chest pain, shortness of breath or grabbing sensation in her chest. Advised that she needs to seek medical care emergently. She is aware that she is overdue for her health maintenance items. A vascular referral was scheduled for June. She does not wish to pursue this at this time. She can continue to use warm compresses to the back of the left leg. Avoid tight constrictive clothing. Prolonged immobility. Reminded that should she develop any acute chest pain, syncope, stroke-like symptoms, etc. that she should seek care in the emergency room. This note is constructed using voice recognition software. While every effort has been made to ensure accuracy in dumper operator, still errors may have been included Sometimes, these errors may affect the content or meaning of the given sentence . Total time spent caring for the patient today was 30 minutes. This i ncludes time spent before the visit reviewing the chart, time spent during the visit, and time spent after the visit on documentation [facility] Social History (Updated 04/11/24 @ 12:05 by Brigida Iraheta CMA) Housing: Apartment Patient Tobacco Use Status: Former Tobacco user (stopped smoking years ago) e-Cigarette/Vaping Use: Never Used Second Hand Smoke Exposure: No service: No Current occupational status: employed Current occupation: nurse Current occupational exposures/hazards: Yes Cognitive needs: No Hearing needs: No Vision needs: Yes Questionnaire Thrive Questionnaire Date Thrive assessed: 04/02/24 ASH-7 AMB Questionnaire ASH-7 Date ASH - 7 assessed: 04/02/24 Source: Developed by Drs. Delvis Singh, Debra Rivas, Jey Pan and colleagues, with an educational rachele from [employer]. Physical exam (Primary Care) Vital Signs: Last Vital Signs Pulse 88 05/27/24 12:27 Resp 15 05/27/24 12:27 BP 142/70 H 05/27/24 12:27 Pulse Ox 99 05/27/24 12:27 Oxygen Delivery Method Room Air 05/27/24 12:27 BMI result Body Mass Index 41.6 Tobacco/Smoking Status: Tobacco use Status Tobacco use date assessed 04/02/24 05/27/24 12:26 Patient Tobacco Use Status Former Tobacco user (stopped 05/27/24 12:26 smoking years ago) e-Cigarette/Vaping Use Never Used 05/27/24 12:26 Thrive Assessment: Date of Thrive Assessment Date Thrive assessed 04/02/24 05/27/24 12:26 Assessment and Plan Assessment & Plan (1) PVD (peripheral vascular disease): Code(s): I73.9 - Peripheral vascular disease, unspecified (2) Heart murmur: Code(s): R01.1 - Cardiac murmur, unspecified (3) Elevated d-dimer: Code(s): R79.89 - Other specified abnormal findings of blood chemistry Review Patient declined Mammogram: 05/27/24 Declined Pap Smear: 05/27/24 Patient declined Colonoscopy: 05/27/24 Patient declined Colon Cancer Screen Lab: 05/27/24 Patient declined Pneumococcal Vaccine: 05/27/24 Flu Vaccine not done: patient reason Declined TDap/Td: 05/27/24 Coding Level of Care Code Est Pt Level 4 (36178) Diagnoses PVD (peripheral vascular disease) I73.9 Heart murmur R01.1 Elevated d-dimer R79.89
[2024-05-27 12:27] VITALS: BP 142/70; PULSE 88; RESP 15; O2SAT 99; BMI 41.6
== END 2024-05-27 13:00 | disposition home or self-care (01) ==
PROVIDERS: PCP Nurse Practitioner Family; Visit Provider Nurse Practitioner Family
DX: I73.9 Peripheral vascular disease, unspecified (principal); R01.1 Cardiac murmur, unspecified; R79.89 Other specified abnormal findings of blood chemistry
CPT/HCPCS: 99214

== ENCOUNTER 2025-09-01 16:04 | Outpatient (AMB) | payer OTHER, SELFPAY ==
[2025-09-01 16:05] VITALS: BP 146/70; PULSE 88; TEMP 36.6; O2SAT 100; BMI 38.2
--- NOTE | 2025-09-01 16:05 | AM.OFFWIN_ITS ---
Intake Vital Signs 09/01/25 16:05 Height 5 ft 1 in Weight 202 lb BMI 38.2 BP 146/70 H Blood Pressure Location Lt brachial Position Sitting Pulse 88 Pulse Source Pulse Oximeter Temp 97.9 F Temp Source Oral Pulse Oximetry (%) 100 Oxygen Delivery Method Room Air Intake Visit Reasons: EP Possible UTI Patient Tobacco Use Status: Former Tobacco user (stopped smoking years ago) Allergies codeine (CODEINE) Allergy (Intermediate, Verified 09/01/25 16:18) blurred vision, nausea levofloxacin (From LEVAQUIN) Allergy (Intermediate, Verified 09/01/25 16:18) neurological changes metronidazole (From FLAGYL) Allergy (Intermediate, Verified 09/01/25 16:18) neurological changes sulfamethoxazole (From Bactrim) Allergy (Verified 05/27/24 12:49) Hives trimethoprim (From Bactrim) Allergy (Verified 05/27/24 12:49) Hives procaine (From NOVOCAIN) Adverse Reaction (Severe, Verified 09/01/25 16:18) SOB amoxicillin Adverse Reaction (Intermediate, Verified 09/01/25 16:19) causes black out Do you need a note to return to daycare/school/sports/work: Yes HPI HPI Comments History of Present Illness Details History - The patient is a 65-year-old female pr esenting with symptoms of a urinary tract infection. - She reports experiencing suprapubic pa in and flank pain that radiates to her back. - She noted her urine appeared pinkish o n a couple of occasions, although the specimen provided was yellow and only slightly cloudy. - The patient denies any history of kidn ey stones. - The last similar episode occurred appr oximately five years ago and was treated successfully with amoxicillin. - However, she reports having two blacko ut episodes while taking amoxicillin in the past. - She does not take any regular medicati ons. - She is unaware of having previously ta alban Keflex, Cipro, or Macrobid. - She denies a history of kidney stones. - She denies fever, chills, CP, SOB, abd pain, or n/v/d. Physical Exam General: Cooperative, healthy appearing, comfortable, no acute distress and well developed Cardiac: Normal S1 and S2. RRR, no M/R/G noted. Respiratory: Normal respiratory effort and able to speak in complete sentences. Clear to auscultation bilaterally. No w/r/r noted. Skin: No rashes or lesions noted. GI: Normal inspection. Normal BS noted. Soft, non-tender, non-distended. No TTP of all 4 quadrants. No guarding or rebound tenderness noted. Back: Negative CVA bilaterally, but patient reports flank pain and tenderness in the suprapubic area. Patient was informed and verbally consented to the use of an ambient scribe for clinic note documentation during this visit. [facility] Social History (Updated 04/11/24 @ 12:05 by Brigida Iraheta CMA) Housing: Apartment Patient Tobacco Use Status: Former Tobacco user (stopped smoking years ago) e-Cigarette/Vaping Use: Never Used Second Hand Smoke Exposure: No service: No Current occupational status: employed Current occupation: nurse Current occupational exposures/hazards: Yes Cognitive needs: No Hearing needs: No Vision needs: Yes Review of Systems Const All systems reviewed & are unremarkable except as noted in HPI and below Physical Exam Vital Signs: Last Vital Signs Temp 97.9 F 09/01/25 16:05 Pulse 88 09/01/25 16:05 BP 146/70 H 09/01/25 16:05 Pulse Ox 100 09/01/25 16:05 Oxygen Delivery Method Room Air 09/01/25 16:05 BMI result Body Mass Index 38.2 Results AMB Urinalysis, Automated UA Leukoctes 0 Tameka/uL Last Edit by Radha Hooper CMA on 09/01/25 16:23 UA Nitrite Negative Last Edit by Radha Hooper CMA on 09/01/25 16:23 UA Urobilinogen 0.2 mg/dL Last Edit by Radha Hooper CMA on 09/01/25 16:2 3 UA Protein 15 mg/dL Last Edit by Radha Hooper CMA on 09/01/25 16:23 UA pH 6.0 Last Edit by Radha Hooper CMA on 09/01/25 16:23 UA Blood 200 Sebastian/uL Last Edit by Radha Hooper CMA on 09/01/25 16:23 3+ Radha Hooper 09/01/25 16:23 UA Specific [place] 1.020 Last Edit by Radha Hooper CMA on 09/01/25 16: 23 UA Ketone Negative Last Edit by Radha Hooper CMA on 09/01/25 16:23 UA Bilirubin 0 mg/dL Last Edit by Radha Hooper CMA on 09/01/25 16:23 UA Glucose 0 mg/dL Last Edit by Radha Hooper CMA on 09/01/25 16:23 Results Reviewed Results Reviewed: Laboratory Last Values Urine pH (Auto) 6.0 09/01/25 16:22 Specific [place] (Auto) 1.020 09/01/25 16:22 Urine Protein (Auto) 15 mg/dL H 09/01/25 16:22 Glucose (UA)(Auto) 0 mg/dL 09/01/25 16:22 Urine Ketones (Auto) Negative 09/01/25 16:22 Urine Blood (Auto) 200 Sebastian/uL H* 09/01/25 16:22 Urine Nitrite (Auto) Negative 09/01/25 16:22 Urine Bilirubin (Auto) 0 mg/dL 09/01/25 16:22 Urine Urobilinogen (Auto) 0.2 mg/dL 09/01/25 16:22 Leukocyte Esterase (Auto) 0 Tameka/uL 09/01/25 16:22 Assessment & Plan Assessment & Plan (1) Dysuria: Code(s): R30.0 - Dysuria Plan Most likely UTI UA 3+blood Plan - A urinalysis showed potential blood, suggesting the beginning of an infection. - A urine culture will be sent for further analysis. - Keflex 500 mg twice a day for five days will be started for presumed urinary tract infection, chosen due to the patient's history of blackouts with amoxicillin. - The patient declined medication for urinary pain and cramping, preferring to maintain hydration with water. - The patient was advised to call the office if she experiences any issues with the medication. - The antibiotic will be changed if the urine culture results indicate the current treatment is not effective. - The patient was counseled that worsening symptoms such as vomiting, fever, or increased pain could indicate a kidney stone and would require further evaluation. Orders: Orders AMB Urinalysis Automated Today Z13.9 - Encounter for screening, unspecified Urine Culture Today N39.0 - Urinary tract infection, site not specified Medications: New cefuroxime axetil 500 mg PO Q12H 10 tabs 0RF 5 days Coding Level of Care Code Est Pt Level 3 (74542) Diagnoses Dysuria R30.0
--- OUTSIDE RECORDS SUMMARY | 2025-09-01 20:05 | XMS_ITS | Clinical Summary ---
Author Organization [facility] Address [address] [place] [address] [place] [id number] Phone Care Team Providers Care Stock Chaser Name Role Phone Jared Lu MD Primary Care Provider Allergies Active Allergy Reactions Criticality Noted Date Comments Amoxicillin 02/27/2025 blackout Sulfamethoxazole-Trimethoprim Hives 2024 Codeine GI Upset 02/27/2025 Metronidazole 02/27/2025 Neurological symptoms Levofloxacin 02/27/2025 Neurological symptoms Medications No known medications Social History Tobacco Use Types Packs/Day Years Used Date Smoking Tobacco: Former Cigarettes Tobacco Cessation:Counseling Given: Not Answered Education Answer Date Recorded Are you interested in more education? Not on ian e 02/12/2025 Are you concerned about learning? Not on file 02/12/2025 No 02/12/2025 No 02/12/2025 Digital Access Answer Date Recorded No 02/12/2025 No 02/12/2025 Reliable internet access at home? Not on file 02/12/2025 Device with a working camera? Not on file Comments Unknown Sex and Gender Information Value Date Recorded Sex Assigned at Not on file Legal Sex Female 12:51 PM EDT Gender Identity Not on file Sexual Orientation Not on file Last Filed Vital Signs Vital Sign Reading Time Taken Comments Blood Pressure 143/69 04/24/2025 1:48 PM EDT Pulse 82 04/24/2025 1:48 PM EDT Temperature 36.1 C (96.9 F) 04/24/2025 1:48 PM EDT Respiratory Rate - - Oxygen Saturation 97% 04/24/2025 1:48 PM EDT Inhaled Oxygen Concentration - - Weight - - Height - - Body Mass Index - - Plan of Treatment Health Maintenance Due Date Last Done Comments Adult Td,Tdap Booster 1961 LIPID PANEL 1961 DEPRESSION SCREENING 1973 SMOKING Hx and SMOKELESS TOB ACCO SCREENING 1974 HEPATITIS C SCREENING 1979 HIV ONE-TIME SCREENING (18-6 5 YEARS) 1979 PAP SMEAR 1982 MAMMOGRAM 2001 COLOGUARD 2006 COLONOSCOPY 2006 COLORECTAL CANCER SCREENING 2006 FIT TEST 2006 FOBT 2006 SIGMOIDOSCOPY 2006 VIRTUAL COLONOSCOPY 2006 PNEUMOCOCCAL VACCINES (50+ y ears) (1 of 1 - PCV) 2011 ZOSTER VACCINES (1 of 2) 2011 INFLUENZA VACCINE (#1) 2025 COVID-19 VACCINE (1 - 2024-2 6 season) 2025 RSV VACCINE (1 - 1-dose 75+ series) 2036 HEPATITIS A VACCINES Aged Out No long er eligible based on patient's age to complete this topic HIB VACCINES Aged Out No longer eligi ble based on patient's age to complete this topic MENINGOCOCCAL VACCINES (ACWY) Aged Out No longer eligible based on patient's age to complete this topic MENINGOCOCCAL VACCINES (B) Aged Out N o longer eligible based on patient's age to complete this topic Medical Devices Not on file Insurance [facility] [place] [place] [address] [place] [address] [place] [address] [place] [address] [place] [place] [address] C[facility] CARE Care Teams Stock Chaser Relationship Specialty Start Date End Date Jared Lu MD PCP - General Family Medicine 02/04/25 Additional Source Comments The information contained in this document represents components of the legal health record. It is not the complete legal health record.[facility]
== END 2025-09-01 16:48 | disposition home or self-care (01) ==
PROVIDERS: PCP Nurse Practitioner Family; Visit Provider Physician Assistant Medical
DX: R30.0 Dysuria (principal); Z13.9 Encounter for screening, unspecified

== ENCOUNTER 2025-09-01 16:04 | Outpatient (REF) | payer OTHER, SELFPAY | END 2025-09-01 16:05 | disposition home or self-care (01) | LOC: HO.LAB 16:04 | PROVIDERS: PCP Nurse Practitioner Family; Visit Provider Physician Assistant Medical | DX: N39.0 Urinary tract infection, site not specified (principal); R30.0 Dysuria | CPT/HCPCS: 81003; 87086 ==